=== PATIENT | male | born 1975 | race Two or more races ===

== ENCOUNTER 2022-01-31 13:48 | Emergency (ER) | payer SELFPAY ==
[~2022-01-31] VITALS: Ht 180.3 cm; Wt 69.3 kg
[2022-01-31 14:40] VITALS: BP 120/88
[2022-01-31] MEDS ORDERED: PRED20TA2 PO (16:51)
[2022-01-31] MEDS ORDERED: CLIN-203 PO (16:51)
[2022-01-31] MEDS ORDERED: IBUPROFEN 600 MG TAB PO ONE (17:00)
[2022-01-31] MEDS ORDERED: DexAMETHasone SOD PHOS 10MG/1ML VIAL INJ IM ONE (17:00)
== END 2022-01-31 17:39 | disposition home or self-care (01) ==
LOC: ER 13:48
DX: K04.7 Periapical abscess without sinus (principal)
CPT/HCPCS: 96372; 99283; J1100

== ENCOUNTER 2024-03-07 22:26 | Emergency (ER) | payer OTHER ==
[~2024-03-07] VITALS: Ht 175.3 cm; Wt 79.2 kg
[~2024-03-07 22:26] MED LIST: CLIN-203 PO; PRED20TA2 PO
[2024-03-08 00:19] VITALS: BP 129/89; TEMP 98.5
--- NOTE | 2024-03-08 00:32 | ED.PDOC ---
History of Present Illness(SKN HPI Comments This is a 48-year-old male presents to the ED chief complaint needle stick. 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 Patient the needle had blood on it was after checking the patient's glucose he notes patient reports no history of any communicable diseases. However patient does report concerned and would like baseline lab work taken. Denies any symptoms at this time. He also states he gets himself checked every 6 months for STDs, hepatitis, and HIV. Chief Complaint: Upper Extremity Time Seen by MD: 22:46 History of Present Illness: Nurses Notes, Medications, Allergies Allergies: Coded Allergies: NO KNOWN ALLERGIES (Unverified , 01/31/22) Home Meds Active Scripts Prednisone (Prednisone) 20 Mg Tab, 20 MG PO DAILY for 5 Days, #5 TAB 0 Refills Prov:LAZARA MCPHERSON [facility] 01/31/22 Clindamycin HCl (Clindamycin Hydrochloride) 300 Mg Cap, 450 MG PO TID for 14 Days, #42 CAP 0 Refills Prov:LAZARA MCPHERSON [facility] 01/31/22 Information Source: Patient Mode of Arrival: Ambulatory Past Medical History PAST MEDICAL HISTORY: Denies Surgical History: Denies all surgeries Family History Family History: Reviewed,noncontributory to illness Social History Smoker: Non-Smoker Alcohol: Denies ETOH Use Drugs: Denies Drug Use Lives In: Home Constitutional: denies: chills, diaphoresis, fatigue, fever, malaise, sweats, weakness, others EENTM: denies: blurred vision, double vision, ear bleeding, ear discharge, ear drainage, ear pain, ear ringing, eye pain, eye redness, hearing loss, mouth pain, mouth swelling, nasal discharge, nose bleeding, nose congestion, nose pain, photophobia, tearing, throat pain, throat swelling, voice changes, others Respiratory: denies: cough, hemoptysis, orthopnea, SOB at rest, shortness of breath, SOB with excertion, stridor, wheezing, others Cardiovascular: denies: chest pain, dizzy spells, diaphoresis, Dyspnea on exertion, edema, irregular heart beat, left arm pain, lightheadedness, palpitations, PND, syncope, others Gastrointestinal: denies: abdomen distended, abdominal pain, blood streaked bowels, constipated, diarrhea, dysphagia, difficulty swallowing, hematemesis, melena, nausea, poor appetite, poor fluid intake, rectal bleeding, rectal pain, vomiting, others Genitourinary: denies: burning, dysuria, flank pain, frequency, hematuria, incontinence, penile discharge, penile sore, pain, testicle pain, testicle swelling, urgency, others Neurological: denies: dizziness, fainting, headache, left sided numbness, left sided weakness, numbness, paresthesia, pre-existing deficit, right sided numbness, right sided weakness, seizure, speech problems, tingling, tremors, weakness, others Musculoskeletal: denies: back pain, gout, joint pain, joint swelling, muscle pain, muscle stiffness, neck pain, others Integumetry: reports: wounds (Puncture wound 2nd digit left hand); denies: bruises, change in color, change in hair/nails, dryness, laceration, lesions, wendy mps, rash, others Allergic/Immunocompromised: denies: Difficulty Healing, Frequent Infections, Hives, Itching, others Hematologic/Lymphatic: denies: anemia, blood clots, easy bleeding, easy bruising, swollen glands, others Endocrine: denies: excessive hunger, excessive sweating, excessive thirst, excessive urination, flushing, intolerance to cold, intolerance to heat, unexplained weight gain, unexplained weight loss, others Psychiatric: denies: anxiety, bipolar disorder, depression, hopeless, panic disorder, schizophrenia, sleepless, suicidal, others Physical Exam General Appearance: No Apparent Distress, Normal HEENT: Pharynx Normal Neck: Full Range of Motion, Non-Tender Respiratory: Lungs Clear, No Respiratory Distress, Normal Breath Sounds Cardiovascular: No Murmur, Normal Peripheral Pulses, Regular Rate/Rhythm Breast Exam: Deferred Gastrointestinal: No Organomegaly, Non Tender, No Pulsatile Mass, Normal Bowel Sounds, Soft Genitalia: Deferred Pelvic: Deferred Rectal: Deferred Extremities: Normal capillary refill, Normal inspection, Normal range of motion, Non-tender, No pedal edema Musculoskeletal : Apperance: Normal Neurologic: Alert, 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 Was a procedure done?: No Differential Diagnosis (INTG) Differential Diagnosis: Abrasion, Cellulitis, Fracture, Hematoma, Laceration, Puncture Wound X-Ray, Labs, Meds, VS Vital Signs Date Time Temp Pulse Resp B/P (MAP) Pulse Ox O2 Delivery O2 Flow Rate FiO2 03/08/24 01:07 53 16 99 Room Air 03/08/24 00:19 98.5 53 16 129/89 (102) 99 98.5 03/07/24 22:51 97.7 66 18 134/94 (107) 99 Lab Test 03/08/24 00:32 Range/Units Hepatitis B Surface Antigen Pending Hepatitis B Surface Antibody Pending Hepatitis C Antibody Negative Negative HIV (1&2) Antibody Negative Negative X-Ray, Labs, Meds, VS Comment Post exposure lab work taken. Advised patient to follow up with HR and schedule follow up visit with occupational health for lab results and continued schedule of blood draws advised on ER return precautions. Advised to follow up with his PCP in 2-3 days as necessary patient refused to start any HIV medication low risk patient and lower risk stick. Patient agrees with discharge plan of care. Time of 1ST Reevaluation: 00:25 Reevaluation 1ST: Unchanged Patient Education/Counseling: Diagnosis, Treatment, Prognosis, Need For Follow Up Family Education/Counseling: No Family Present Departure 1 Departure Time of Disposition: 00:31 Impression: Primary Impression: Needle exposure Qualified Codes: X58.XXXA - Exposure to other specified factors, initial encounter Disposition: HOME / SELF CARE / HOMELESS Condition: Stable Discharged With: Self Critical Care Note Critical Care Time?: No Stability Stability form required: GABBY Hernandez Mar 08, 2024 00:32
[2024-03-08 01:07] VITALS: PULSE 53; RESP 16; O2SAT 99
[2024-03-11 08:43] LABS: Hepatitis B Surface Antibody Negative (Negative); Hepatitis B Surface Antigen Negative (Negative)
== END 2024-03-08 01:08 | disposition home or self-care (01) ==
LOC: ER 22:26
DX: S61.231A Puncture wound without foreign body of left index finger without damage to nail, initial encounter (principal); Z79.52 Long term (current) use of systemic steroids; Z79.899 Other long term (current) drug therapy; W46.0XXA Contact with hypodermic needle, initial encounter; Y93.89 Activity, other specified; Y92.89 Other specified places as the place of occurrence of the external cause; Y99.0 Civilian activity done for income or pay
CPT/HCPCS: 36415; 86703; 86706; 86803; 87340

== ENCOUNTER 2024-07-11 15:37 | Emergency (ER) | payer OTHER ==
[~2024-07-11] VITALS: Ht 182.9 cm; Wt 72.9 kg
[2024-07-11 16:52] VITALS: BP 119/82; PULSE 92; RESP 16; TEMP 99.2; O2SAT 96
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
--- NOTE | 2024-07-11 17:30 | DVH ---
XY L HAND 3V XRAY, INDICATION: R/o fracture TECHNICAL DATA: Frontal, oblique and lateral views were obtained of the left hand. COMPARISON: None FINDINGS: No fracture is identified. Joint spaces are maintained. Alignment is anatomic. Soft tissues are withi n normal limits. IMPRESSION: 1. No acute fracture or dislocation of the left hand.
[2024-07-11] MEDS: KETOROLAC TROMETH 60MG/2ML VIAL IM ONE (17:33)
[2024-07-11] MEDS ORDERED: NAPR-957 PO (17:34)
== END 2024-07-11 17:46 | disposition home or self-care (01) ==
LOC: ER 15:41
DX: M79.672 Pain in left foot (principal); Y04.0XXA Assault by unarmed brawl or fight, initial encounter; Y93.89 Activity, other specified; Y92.89 Other specified places as the place of occurrence of the external cause; Y99.8 Other external cause status
CPT/HCPCS: 73130; J1885

== ENCOUNTER 2024-12-05 08:58 | Emergency (ER) | payer OTHER ==
[~2024-12-05] VITALS: Ht 180.3 cm; Wt 75.0 kg
[~2024-12-05 08:58] MED LIST changes: +NAPR-957 PO
--- NOTE | 2024-12-05 09:40 | ED.PDOC ---
History of Present Illness EXP HPI Comments A 49 YEAR OLD MALE PRESENTS TO THE ED WITH COMPLAINT OF NEEDLE STICK INJURY. 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 PATIENT REPORTS HIS RIGHT INDEX FINGER WAS PREPPED WITH A NEEDLE. PATIENT IS REQUESTING A POST EXPOSURE WORKUP. PATIENT DENIES FEVER, CHILLS, SHORTNESS OF BREATH, CHEST PAIN, ABDOMINAL PAIN, NAUSEA, VOMITING, HEADACHE, OR OTHER COMPLAINTS. NO OTHER SYMPTOMS OR MODIFYING FACTORS AT THIS TIME. PATIENT IS ALERT, ORIENTED X 4, AND HAS STEADY GAIT. 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 Prednisone (Prednisone) 20 Mg Tab, 20 MG PO DAILY for 5 Days, #5 TAB 0 Refills Prov:LAZARA MCPHERSON [facility] 01/31/22 Clindamycin HCl (Clindamycin Hydrochloride) 300 Mg Cap, 450 MG PO TID for 14 Days, #42 CAP 0 Refills Prov:LAZARA MCPHERSON [facility] 01/31/22 Information Source: Patient Mode of Arrival: Ambulatory Severity: Mild Timing: Hours Duration: Since onset, Hours Prehospital treatment: None Location: Intact skin Exposed to: Blood Exposed by: Needlestick If needlestick: Gauge Treatment prior to arrival: Washing Source information: None Patient information: None Past Medical History PAST MEDICAL HISTORY: Denies Surgical History: Denies all surgeries Family History Family History: Reviewed,noncontributory to illness Social History Smoker: Non-Smoker Alcohol: Denies ETOH Use Drugs: Denies Drug Use Lives In: Home Constitutional: denies: chills, diaphoresis, fatigue, fever, malaise, sweats, weakness, others EENTM: denies: blurred vision, double vision, ear bleeding, ear discharge, ear drainage, ear pain, ear ringing, eye pain, eye redness, hearing loss, mouth pain, mouth swelling, nasal discharge, nose bleeding, nose congestion, nose pain, photophobia, tearing, throat pain, throat swelling, voice changes, others Respiratory: denies: cough, hemoptysis, orthopnea, SOB at rest, shortness of breath, SOB with excertion, stridor, wheezing, others Cardiovascular: denies: chest pain, dizzy spells, diaphoresis, Dyspnea on exertion, edema, irregular heart beat, left arm pain, lightheadedness, palpitations, PND, syncope, others Gastrointestinal: denies: abdomen distended, abdominal pain, blood streaked bowels, constipated, diarrhea, dysphagia, difficulty swallowing, hematemesis, melena, nausea, poor appetite, poor fluid intake, rectal bleeding, rectal pain, vomiting, others Genitourinary: denies: burning, dysuria, flank pain, frequency, hematuria, incontinence, penile discharge, penile sore, pain, testicle pain, testicle swelling, urgency, others Neurological: denies: dizziness, fainting, headache, left sided numbness, left sided weakness, numbness, paresthesia, pre-existing deficit, right sided numbness, right sided weakness, seizure, speech problems, tingling, tremors, weakness, others Musculoskeletal: denies: back pain, gout, joint pain, joint swelling, muscle pain, muscle stiffness, neck pain, others Integumetry: reports: others (NEEDLE STICK INJURY OF RIGHT INDEX FINGER); denies: bruises, change in color, change in hair/nails, dryness, laceration, lesions, lumps, rash, wounds Allergic/Immunocompromised: denies: Difficulty Healing, Frequent Infections, Hives, Itching, others Hematologic/Lymphatic: denies: anemia, blood clots, easy bleeding, easy bruising, swollen glands, others Endocrine: denies: excessive hunger, excessive sweating, excessive thirst, excessive urination, flushing, intolerance to cold, intolerance to heat, unexplained weight gain, unexplained weight loss, others Psychiatric: denies: anxiety, bipolar disorder, depression, hopeless, panic disorder, schizophrenia, sleepless, suicidal, others All Other Systems: Reviewed and Negative Physical Exam General Appearance: No Apparent Distress, Normal HEENT: Normal ENT Inspection, Pharynx Normal, TMs Normal Neck: Full Range of Motion, Non-Tender, Normal, Normal Inspection Respiratory: Chest Non-Tender, Lungs Clear, No Accessory Muscle Use, No Respiratory Distress, Normal Breath Sounds Cardiovascular: No Edema, No JVD, No Murmur, No Gallop, Normal Peripheral Pulses, Regular Rate/Rhythm Breast Exam: Deferred Gastrointestinal: No Organomegaly, Non Tender, No Pulsatile Mass, Normal Bowel Sounds, Soft Genitalia: Deferred Pelvic: Deferred Rectal: Deferred Extremities: No calf tenderness, Normal capillary refill, Normal inspection, Normal range of motion, Non-tender, No pedal edema Musculoskeletal : Apperance: Normal Neurologic: Alert, 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 ) Peripheral Pulses: 2+ carotid (R), 2+ carotid (L), 2+ Radial (R), 2+ Radial (L) Lymphatic: No Adenopathy Was a procedure done? Was a procedure done?: No Differential Diagnosis (EXP) Differential Diagnosis: Needle stick exposure X-Ray, Labs, Meds, VS Vital Signs Date Time Temp Pulse Resp B/P (MAP) Pulse Ox O2 Delivery O2 Flow Rate FiO2 12/05/24 10:40 76 18 99 Room Air 12/05/24 10:40 98.0 76 18 123/85 (98) 9 98.0 12/05/24 09:01 98.0 76 18 123/85 99 98.0 X-Ray, Labs, Meds, VS Comment EXTERNAL MEDICAL RECORDS REVIEWED: [NONE] INDEPENDENT HISTORIANS: [NONE] SOCIAL DETERMINANTS OF HEALTH: [NONE] LABS ORDERED: POST EXPOSURE PANEL REVIEWED AND INTERPRETED RESULTS: PENDING IMAGING ORDERED: NONE TREATMENTS ORDERED: NONE PROCEDURES PERFORMED: NONE CRITICAL CARE TIME: NONE I HAVE DISCUSSED THE PATIENT WITH THE ATTENDING PHYSICIAN DR. MANN AND HE AGREES WITH THE PATIENT'S PLAN OF CARE AND DISPOSITION. BASED ON HISTORY OF PRESENT ILLNESS, AND PHYSICAL EXAM, PATIENT WILL BE DISCHARGED HOME. SHARED DECISION MAKING: PATIENT INSTRUCTED TO FOLLOW UP WITH PRIMARY CARE PROVIDER IN 1-2 DAYS FOR RE-EVALUATION OF SYMPTOMS. PATIENT VERBALIZES UNDERSTANDING TO RETURN TO ED FOR NEW OR WORSENING SYMPTOMS OR IF FOLLOW UP WITH PCP CANNOT BE OBTAINED. PATIENT FEELS COMFORTABLE GOING HOME AT THIS TIME. ALL QUESTIONS ADDRESSED AT TIME OF DISCHARGE. Time of 1ST Reevaluation: 10:52 Reevaluation 1ST: Improved Patient Education/Counseling: Diagnosis, Treatment, Need For Follow Up Family Education/Counseling: Diagnosis, Treatment, Need For Follow Up Medical Screening: No EMC Exist At This Time Departure 1 Departure Time of Disposition: 10:52 Impression: Primary Impression: Needle stick injury of finger of right hand Disposition: 01 HOME / SELF CARE / HOMELESS Condition: Stable Additional Instructions: FOLLOW-UP WITH [facility] IN 1-2 DAYS. RETURN TO ED FOR ANY NEW OR WORSENING SYMPTOMS. Discharged With: Self Critical Care Note Critical Care Time?: No Stability Stability form required: No I personally scribed for KIMO WALTERS ([email or web address]) on 12/05/24 at 09:40. Electronically submitted by Abner Brunner ([email or web address]). KIMO WALTERS Dec 05, 2024 09:40
[2024-12-05 10:40] VITALS: BP 123/85; PULSE 76; RESP 18; TEMP 98; O2SAT 99
[2024-12-06 11:36] LABS: Hepatitis B Surface Antigen Negative (Negative)
== END 2024-12-05 10:39 | disposition home or self-care (01) ==
LOC: ER 08:58
DX: S61.230A Puncture wound without foreign body of right index finger without damage to nail, initial encounter (principal); Z88.0 Allergy status to penicillin; Z79.52 Long term (current) use of systemic steroids; Z77.21 Contact with and (suspected) exposure to potentially hazardous body fluids; Z79.899 Other long term (current) drug therapy; W46.0XXA Contact with hypodermic needle, initial encounter; Y93.89 Activity, other specified; Y92.89 Other specified places as the place of occurrence of the external cause; Y99.0 Civilian activity done for income or pay
CPT/HCPCS: 36415; 86703; 86706; 86803; 87340